=== PATIENT | male | born 1990 | race Caucasian/White ===

== ENCOUNTER 2023-11-12 01:01 | Emergency (ER) | payer OTHER ==
[~2023-11-12] VITALS: Ht 193 cm; Wt 68.0 kg
[2023-11-12 01:50] VITALS: BP 108/63; TEMP 98
[2023-11-12] MEDS ORDERED: TDAP [DIPH/PERTUSSIS/TET] 0.5 ML VIAL IM ONE ×2 (01:57→02:00)
[2023-11-12] MEDS ORDERED: CEPH500C2 PO (02:20)
[2023-11-12 02:57] VITALS: O2SAT 99
== END 2023-11-12 02:57 | disposition home or self-care (01) ==
LOC: ER 01:04
DX: S41.132A Puncture wound without foreign body of left upper arm, initial encounter (principal); J45.909 Unspecified asthma, uncomplicated; Z79.899 Other long term (current) drug therapy; W54.0XXA Bitten by dog, initial encounter; Y93.89 Activity, other specified; Y92.89 Other specified places as the place of occurrence of the external cause; Y99.8 Other external cause status
CPT/HCPCS: 90715